=== PATIENT | female | born 2000 | race Two or more races ===

== ENCOUNTER 2025-09-25 13:51 | Emergency (ER) | payer OTHER ==
[~2025-09-25] VITALS: Ht 162.6 cm; Wt 77.1 kg
[2025-09-25 18:48] LABS: BASO % 0.6 % (0.1-1.2); EOS # 0.47 (0.04-0.54); EOS % 5.0 % (0.7-7.0); LYMPH # 2.04 (1.18-3.74); LYMPH % 21.8 % (19.3-53.1); MEAN PLATELET VOLUME 10.90 fl (9.4-12.4); MONO # 0.74 (0.24-0.82); MONO % 7.9 % (4.7-12.5); NEUT # 6.00 (1.56-6.13); NEUT % 64.2 % (34.0-71.1); RED CELL DISTRIBUTION WIDTH 12.5 % (11.6-14.4)
[2025-09-25 19:15] LABS: INR 1.03
[2025-09-25 19:40] LABS: ALT/SGPT 25.0 U/L (12-78); AST/SGOT 19.0 U/L (15-37); BILIRUBIN TOTAL 0.27 mg/dL (0.3-1.2); BUN CREA RATIO 15.0 (7.0-25.0); CREATININE SERUM 0.47 mg/dL (0.55-1.02); GFR 164.21; GLOBULINA 4.5 G/DL (2.4-3.5); GLUCOSE FASTING 86.0 mg/dL (65-100); OSMOLALITY SERUM 277.0 MOSM/KG (275-295)
[2025-09-25 20:24] LABS: URINE APPEARANCE Turbid; URINE BILIRRUBIN Negative (NEGATIVE); URINE BLOOD Trace; URINE COLOR Yellow; URINE GLUCOSE Negative (NEGATIVE); URINE LEUKOCYTE Moderate; URINE NITRATE Negative; URINE PROTEIN 30 (NEGATIVE); URINE UROBILINOGEN 0.2 E.U./dl
[2025-09-25 20:28] LABS: URINE CAST 4.72 uL (0.0-1.40); URINE RBC 14.8 uL (0.0-20.8); URINE WBC 368.9 uL (0.0-23.2)
[2025-09-25 21:01] LABS: URINE BACTERIA > 9821.5 uL (0.0-1933); URINE EPITHELIAL CELLS > 201.7 uL (0.0-38.8); URINE KETONE >=160 (NEGATIVE)
[2025-09-25] MEDS ORDERED: CEFUROXIME500 MG PO (21:49)
[2025-09-25] MEDS ORDERED: CEFTRIAXONE SODIUM 1,000 MG VIAL IM ONE (22:00)
== END 2025-09-25 22:45 ==
LOC: ER 13:51
PROVIDERS: General Practice
DX: O23.30 Infections of other parts of urinary tract in pregnancy, unspecified trimester (principal); Z3A.11 11 weeks gestation of pregnancy; R07.9 Chest pain, unspecified; F41.8 Other specified anxiety disorders; N39.0 Urinary tract infection, site not specified

== ENCOUNTER 2025-09-30 02:43 | Emergency (ER) | payer OTHER ==
[~2025-09-30] VITALS: Ht 162.6 cm; Wt 77.1 kg
[~2025-09-30 02:43] MED LIST: CEFUROXIME500 MG PO
[2025-09-30] MEDS ORDERED: FAMOTIDINE/PF 20 MG/2 ML VIAL IV STA ×2 (03:50→06:26)
[2025-09-30] MEDS ORDERED: 0.9 % SODIUM CHLORIDE 1,000 ML IV STA (03:51)
[2025-09-30] MEDS ORDERED: DICYCLOMINE HCL 10 MG CAPSULE PO STA (03:52)
[2025-09-30] MEDS ORDERED: DICYCLOMINE HCL 10 MG CAPSULE PO ONE (03:57)
[2025-09-30] MEDS ORDERED: FAMOTIDINE/PF 20 MG/2 ML VIAL ONE ×2 (03:58→06:49)
[2025-09-30 05:00] LABS: URINE APPEARANCE Turbid; URINE BILIRRUBIN Negative (NEGATIVE); URINE BLOOD Negative; URINE COLOR Yellow; URINE GLUCOSE Negative (NEGATIVE); URINE LEUKOCYTE Moderate; URINE NITRATE Negative; URINE PROTEIN Negative (NEGATIVE); URINE UROBILINOGEN 1.0 E.U./dl
[2025-09-30 05:03] LABS: URINE EPITHELIAL CELLS 166.6 uL (0.0-38.8); URINE RBC 3.1 uL (0.0-20.8); URINE WBC 221.2 uL (0.0-23.2)
[2025-09-30 05:12] LABS: URINE CAST 0.99 uL (0.0-1.40); URINE KETONE 40 (NEGATIVE)
[2025-09-30 05:31] LABS: ALT/SGPT 51.0 U/L (12-78); AST/SGOT 60.0 U/L (15-37); BILIRUBIN TOTAL 0.38 mg/dL (0.3-1.2); BUN CREA RATIO 19.0 (7.0-25.0); CREATININE SERUM 0.36 mg/dL (0.55-1.02); GFR 223.37; GLOBULINA 3.6 G/DL (2.4-3.5); GLUCOSE FASTING 92.0 mg/dL (65-100); OSMOLALITY SERUM 275.0 MOSM/KG (275-295)
[2025-09-30 05:52] LABS: URINE CRYSTALS FEW /HPF
[2025-09-30] MEDS ORDERED: CEFTRIAXONE SODIUM 1,000 MG VIAL IV STA (05:52)
[2025-09-30] MEDS ORDERED: CEFTRIAXONE SODIUM 2,000 MG VIAL ONE (06:11)
[2025-09-30 06:15] LABS: BASO % 0.6 % (0.1-1.2); EOS # 0.32 (0.04-0.54); EOS % 3.0 % (0.7-7.0); LYMPH # 2.30 (1.18-3.74); LYMPH % 21.3 % (19.3-53.1); MEAN PLATELET VOLUME 10.40 fl (9.4-12.4); MONO # 0.74 (0.24-0.82); MONO % 6.9 % (4.7-12.5); NEUT # 7.33 (1.56-6.13); NEUT % 67.7 % (34.0-71.1); RED CELL DISTRIBUTION WIDTH 12.0 % (11.6-14.4)
[2025-09-30] MEDS ORDERED: ONDANSETRON HCL 2 MG/ML VIAL IV STA (06:26)
[2025-09-30] MEDS ORDERED: ONDANSETRON HCL 2 MG/ML VIAL ONE (06:49)
[2025-09-30] MEDS ORDERED: PANTOPRAZOLE SODIUM 40 MG/VIAL VIAL IV PUSH ONE (08:00)
[2025-09-30] MEDS ORDERED: MORPHINE SULFATE 2 MG/ML SYRINGE IV ONE (09:45)
== END 2025-09-30 10:59 | disposition home or self-care (01) ==
LOC: ER 02:43 → EDSEX 02:45 → ER 02:45
PROVIDERS: General Practice
DX: O99.611 Diseases of the digestive system complicating pregnancy, first trimester (principal); K92.89 Other specified diseases of the digestive system; Z3A.12 12 weeks gestation of pregnancy; R11.10 Vomiting, unspecified; R19.7 Diarrhea, unspecified; K80.80 Other cholelithiasis without obstruction